=== PATIENT | female | born 1980 | race Native Hawaiian/Other Pacific Islander ===

== ENCOUNTER 2017-03-31 01:40 | Emergency (ER) | payer OTHER ==
[~2017-03-31] VITALS: Ht 162.6 cm; Wt 90.7 kg
[2017-03-31 03:56] VITALS: BP 132/71; TEMP 98.7
== END 2017-03-31 04:01 | disposition home or self-care (01) ==
LOC: ED 01:40
DX: N20.1 Calculus of ureter (principal); N23 Unspecified renal colic; R10.9 Unspecified abdominal pain
CPT/HCPCS: 81000; 96374; 96375; 99284; J1885; J2550

== ENCOUNTER 2017-06-15 11:04 | Outpatient (CLI) | payer OTHER | END 2017-06-15 12:10 | disposition home or self-care (01) | LOC: CT 11:04 | DX: N20.0 Calculus of kidney (principal); M54.5 Low back pain; M54.6 Pain in thoracic spine; Z82.49 Family history of ischemic heart disease and other diseases of the circulatory system ==

== ENCOUNTER 2017-06-16 14:01 | Outpatient (CLI) | payer OTHER | END 2017-06-16 15:15 | disposition home or self-care (01) | LOC: CT 14:01 | DX: J98.11 Atelectasis (principal); J98.4 Other disorders of lung ==

== ENCOUNTER 2019-05-30 09:21 | Outpatient (CLI) | payer OTHER | END 2019-05-30 19:43 | disposition home or self-care (01) | LOC: CT 09:21 | DX: R91.1 Solitary pulmonary nodule (principal) ==